=== PATIENT | male | born 1990 | race Caucasian/White ===

== ENCOUNTER 2021-01-11 10:07 | Emergency (ER) | payer OTHER, SELFPAY ==
[2021-01-11 10:18] VITALS: BP 126/88; PULSE 91; RESP 16; TEMP 36.2; O2SAT 98
--- NOTE | 2021-01-11 11:35 | ED.URI ---
HPI - URI/Sore Throat General Chief Complaint: Upper Respiratory Infection Stated Complaint: sore throat Time Seen by Provider: 01/11/21 11:28 Source: patient and RN notes reviewed Mode of arrival: ambulatory Limitations: no limitations History of Present Illness HPI Narrative: 31-year-old male presents with concern for sore throat. Reports 4-day history of sore throat. He denies rhinorrhea, nasal congestion, headache, nausea, vomiting, fever, body aches, chills, sweats. Reports both of his children have had intermittent fevers. Reports when child has an earache. Denies any known exposure to strep, Covid. Reports he is taking DayQuil which relieve his symptoms. MD elicited complaint: sore throat Related Data Home Medications Medication Instructions Recorded Confirmed multivitamin [Daily Multivitamin] tablet 01/11/21 Allergies Allergy/AdvReac Type Severity Reaction Status Date / Time amoxicillin Allergy Unknown RASH, HIVES Verified 01/11/21 10:16 Review of Systems Review of Systems: CONSTITUTIONAL: Denies malaise, chills, sweats, or fever. EYES: Denies visual changes, redness, or discharge. ENT: Denies rhinorrhea, congestion, sinus pain, otalgia. Reports sore throat. CARDIOVASCULAR: Denies chest pain, palpitations, or edema. RESPIRATORY: Denies cough or dyspnea. GASTROINTESTINAL: Denies abdominal pain, nausea, vomiting, diarrhea SKIN: Denies rash or itching. MUSCULOSKELETAL: Denies myalgia. NEUROLOGIC: Denies headache. All systems reviewed & are unremarkable except as noted in HPI and below PMFSH Comments At time of signature, agree with nursing past medical, surgical, social and family history. There is no relevant family history pertinent to the presenting complaint Exam Narrative: GENERAL: Well-appearing, well-nourished, and in no acute distress. HEAD: Normocephalic EYES: PERRLA, conjunctivae clear ENT: Nares clear. Mucous membranes moist. TM pearly nova with sharp light reflex bilaterally; no tragal tenderness. Oropharynx not erythematous without lesions. Tonsils not enlarged and without exudate, no drooling, no hoarseness, no trismus, uvula midline. NECK: Supple. No lymphadenopathy CHEST: Clear to auscultation, breath sounds equal. No wheezing, rhonchi, rales, or stridor. No respiratory distress, speaks in full sentences. HEART: Regular rate and rhythm. No murmur heard. SKIN: Warm, dry, no rash. NEURO: Alert and oriented x3. PSYCH: Normal mood and affect Course Course Emergency Course: Patient is aware of diagnosis, understands and agrees to treatment plan. Anticipatory guidance given. Patient agrees to follow-up as directed and is aware of reasons to seek care at the emergency department. Portions of this record may have been created with voice recognition software Vital Signs Vital signs: Vital Signs Temperature 97.2 F L 01/11/21 10:18 Pulse Rate 91 01/11/21 10:18 Respiratory Rate 16 01/11/21 10:18 Blood Pressure 126/88 01/11/21 10:18 Pulse Oximetry 98 01/11/21 10:18 Temperature 97.2 F L 01/11/21 10:18 Pulse Rate 91 01/11/21 10:18 Respiratory Rate 16 01/11/21 10:18 Blood Pressure 126/88 01/11/21 10:18 Pulse Oximetry 98 01/11/21 10:18 Reviewed. MDM - URI/Sore Throat MDM Narrative Medical decision making narrative: Differential diagnosis considered: Watt virus, strep pharyngitis, allergic rhinitis, upper respiratory tract infection, sinusitis, rhinosinusitis, nasopharyngitis. viral pharyngitis, otitis media, otitis externa, pneumonia, bronchitis, viral cough syndrome, viral syndrome, and influenza. Exam findings show no acute concerns or changes; patient is non-toxic appearing and is in no distress. Patient is appropriate for outpatient treatment and follow-up. Lab Data Attestation: I reviewed the patient's lab results. Labs: Strep Screen Presumptive Negative *(Reference Range: Negative)* Critical Care Time
== END 2021-01-11 11:39 | disposition home or self-care (01) ==
PROVIDERS: Emergency Provider Nurse Practitioner; PCP Student in an Organized Health Care Education/Training Program
DX: J02.9 Acute pharyngitis, unspecified (principal)
CPT/HCPCS: 87081; 87880; 99213; G0463

== ENCOUNTER 2021-03-31 10:40 | Emergency (ER) | payer OTHER, SELFPAY ==
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
[2021-03-31 11:03] VITALS: BP 122/96; PULSE 96; RESP 19; O2SAT 99
[2021-03-31] MEDS: methylPREDNISolone SOD SUCC 125 MG VIAL IM (11:53)
[2021-03-31] MEDS: KETOROLAC (*BKC) 60 MG/2 ML VIAL IM (11:54)
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
== END 2021-03-31 13:05 | disposition home or self-care (01) ==
PROVIDERS: Emergency Provider Emergency Medicine; PCP Student in an Organized Health Care Education/Training Program
DX: M54.50 Low back pain, unspecified (principal); G89.21 Chronic pain due to trauma; M51.36 Other intervertebral disc degeneration, lumbar region
CPT/HCPCS: 72110; 96372; 99284; J1885; J2930